=== PATIENT | male | born 1990 | race Two or more races ===

== ENCOUNTER 2023-11-21 08:47 | Emergency (ER) | payer MEDICAID, OTHER ==
[~2023-11-21] VITALS: Ht 185.4 cm; Wt 100.0 kg
[2023-11-21 09:19] VITALS: BP 148/94; PULSE 90; RESP 16; TEMP 99.3; O2SAT 100
[2023-11-21] MEDS: KETOROLAC TROMETH 30 MG/ML 1ML VIAL IM ONE (10:23)
[2023-11-21] MEDS: HYDROcodone-ACET 5/325MG TAB PO ONE (10:23)
[2023-11-21] MEDS ORDERED: ACET500T58 PO (11:36)
[2023-11-21] MEDS ORDERED: TRAM50TA2 PO (11:36)
== END 2023-11-21 12:16 | disposition home or self-care (01) ==
LOC: ER 08:47
DX: S92.002A Unspecified fracture of left calcaneus, initial encounter for closed fracture (principal); W21.05XA Struck by basketball, initial encounter; Y93.67 Activity, basketball; Y92.89 Other specified places as the place of occurrence of the external cause; Y99.8 Other external cause status
CPT/HCPCS: 29515; 73610; 73700; 96372; 99285; J1885

== ENCOUNTER 2024-07-25 09:18 | Emergency (ER) | payer MEDICAID ==
[~2024-07-25] VITALS: Ht 185.4 cm; Wt 107.4 kg
[~2024-07-25 09:18] MED LIST: ACET500T58 PO; TRAM50TA2 PO
[2024-07-25 12:02] VITALS: BP 146/80; TEMP 98.1
[2024-07-25 12:14] VITALS: PULSE 94; RESP 20; O2SAT 98
[2024-07-25 13:33] LABS: COVID19 ANTIGEN SOFIA FIA NEGATIVE (NEGATIVE); Rapid Influenza B Negative (Negative)
[2024-07-25 13:35] LABS: Rapid Influenza A Positive (Negative)
[2024-07-25] MEDS ORDERED: OSEL75CA5 PO (13:51)
[2024-07-25] MEDS ORDERED: ACET500T58 PO (13:51)
[2024-07-25] MEDS ORDERED: PSEU120T18 PO (13:51)
[2024-07-25] MEDS ORDERED: PROM1SOL4 PO (13:51)
[2024-07-25] MEDS ORDERED: BENZ100C97 PO (13:51)
--- NOTE | 2024-07-25 13:51 | ED.PDOC ---
History of Present Illness HPI Comments 34-year-old male with no MHx presents with URI symptoms x2 days. Complains of body aches, headaches, no appetite, nonproductive cough and fevers that come and go Started Also with Therapies tried COVID-19 exposure: None that they know of COVID testing People at home Denies fevers chills night sweats unintentional weight loss Denies persistent chest pain, shortness of breath, leg swelling Denies history of asthma nor any breathing conditions Denies history of pneumonia Denies recent international travel Chief Complaint: Cough Time Seen by MD: 11:37 Family History Family History: Reviewed,noncontributory to illness Social History Smoker: Non-Smoker Alcohol: Denies ETOH Use Drugs: Denies Drug Use X-Ray, Labs, Meds, VS Vital Signs Date Time Temp Pulse Resp B/P (MAP) Pulse Ox O2 Delivery O2 Flow Rate FiO2 07/25/24 12:14 94 20 98 Room Air 07/25/24 12:02 98.1 89 18 146/80 (102) 99 98.1 07/25/24 09:55 98.0 94 20 142/88 (106) 98 Lab Test 07/25/24 12:35 Range/Units Influenza Type A Antigen Positive Negative Influenza Type B Antigen Negative Negative SARS-CoV-2 Antigen (Rapid) Negative NEGATIVE Departure 1 Departure Time of Disposition: 13:50 Impression: Primary Impression: Influenza A Disposition: 01 HOME / SELF CARE / HOMELESS Condition: Stable e-Prescriptions Acetaminophen (Acetaminophen) 500 Mg Tab 500 MG PO Q4HP PRN for 10 Days, #50 TAB 0 Refills Prov: REI FERREIRA BACK DIGGER OPERATOR 07/25/24 Pseudoephedrine-Guaifenesin (Mucinex D) 1 Tab Tab 1 TAB PO BID for 10 Days, #20 TAB 0 Refills Prov: REI FERREIRA BACK DIGGER OPERATOR 07/25/24 Promethazine-Dm (Promethazine Dm 6.25-15 mg/5Ml) 1 Angelique Angelique 5 ML PO TID for 10 Days, #150 ML 0 Refills Prov: REI FERREIRA BACK DIGGER OPERATOR 07/25/24 Benzonatate (Benzonatate) 100 Mg Cap 1 CAP PO TID for 10 Days, #30 CAP 0 Refills Prov: REI FERREIRA BACK DIGGER OPERATOR 07/25/24 Oseltamivir Phosphate (Tamiflu) 75 Mg Cap 1 CAP PO BID for 5 Days, #10 CAP 0 Refills Prov: REI FERREIRA BACK DIGGER OPERATOR 07/25/24 REI FERREIRA BACK DIGGER OPERATOR Jul 25, 2024 13:51
== END 2024-07-25 14:05 | disposition home or self-care (01) ==
LOC: ER 09:18
DX: J10.1 Influenza due to other identified influenza virus with other respiratory manifestations (principal); Z20.822 Contact with and (suspected) exposure to COVID-19
CPT/HCPCS: 36415; 87426; 87804